=== PATIENT | female | born 1985 | race Caucasian/White ===

== ENCOUNTER 2016-12-31 08:35 | Outpatient (CLI) | payer OTHER ==
[~2016-12-31] VITALS: Ht 170.2 cm; Wt 82.7 kg
[~2016-12-31 08:35] MED LIST: IRON1TAB2 PO; PREN1TAB79 PO
[2016-12-31 08:44] VITALS: BP 136/71
== END 2016-12-31 09:47 | disposition home or self-care (01) ==
LOC: LDOP 08:35
PROVIDERS: ATTEND Student in an Organized Health Care Education/Training Program
DX: O99.013 Anemia complicating pregnancy, third trimester (principal); O48.0 Post-term pregnancy; Z3A.40 40 weeks gestation of pregnancy
CPT/HCPCS: 59025; 99201; G0463

== ENCOUNTER 2017-01-05 10:07 | Inpatient (IN) | payer OTHER ==
[2017-01-05] VITALS (8 sets, daily range): BP systolic 108–135; BP diastolic 58–73
[~2017-01-05] VITALS: Ht 170.2 cm; Wt 83.0 kg
[2017-01-05] MEDS ORDERED: D5%-LACTATED RINGERS 1,000 ML IV SCH (10:39)
[2017-01-05] MEDS ORDERED: LACTATED RINGERS 1,000 ML IV SCH (10:39)
[2017-01-05] MEDS ORDERED: OXYTOCIN 30U/ 0.9% NaCL 500ML 500 ML IV ONE (10:39)
[2017-01-05] MEDS ORDERED: NEWBORN KIT ONE (10:54)
[2017-01-05] MEDS ORDERED: FENTANYL PF 100 MCG/2ML IVPush PRN (11:00)
[2017-01-05] MEDS ORDERED: ONDANSETRON 2MG/ML, 2ML IVPush PRN ×2 (11:00→14:00)
[2017-01-05] MEDS ORDERED: TERBUTALINE 1 MG/ML, 1ML SQ PRN (11:00)
[2017-01-05] MEDS ORDERED: FENTANYL PF 100 MCG/2ML IV PRN ×2 (11:00→14:00)
[2017-01-05] MEDS ORDERED: OXYTOCIN 30U/ 0.9% NaCL 500ML 500 ML ONE ×3 (11:07→13:51)
[2017-01-05] MEDS ORDERED: MISOPROSTOL 200 MCG TABLET ONE (11:07)
[2017-01-05] MEDS ORDERED: LIDOCAINE 1%, 20ML ONE ×3 (11:07→13:46)
[2017-01-05 11:21] LABS: HEMATOCRIT 26.6 % (34.6-47.8); WHITE BLOOD COUNT 12.6 x10^3/uL (3.4-10)
[2017-01-05 11:39] LABS: DIFF TOTAL CELLS COUNTED 100 CELL DIFF
[2017-01-05 11:40] LABS: ANISOCYTOSIS 2+; MICROCYTOSIS 2+; VERIFY COUNTS? YES
[2017-01-05 11:41] LABS: OVALOCYTES 1+; POIKILOCYTOSIS 1+
[2017-01-05 11:42] LABS: HYPOCHROMIA 2+; POLYCHROMASIA 1+
[2017-01-05] MEDS ORDERED: FENTANYL PF 100 MCG/2ML ONE ×2 (12:12→13:06)
[2017-01-05] MEDS ORDERED: HYDROcodone/APAP 5/325 TABLET PO PRN (13:00)
[2017-01-05] MEDS ORDERED: HETASTARCH 0.9 % 500 ML IV SCH (13:00)
[2017-01-05] MEDS ORDERED: ONDANSETRON 2MG/ML, 2ML IV PRN (13:00)
[2017-01-05] MEDS ORDERED: MISOPROSTOL 200 MCG TABLET PR ONE (13:00)
[2017-01-05] MEDS ORDERED: METHYLERGONOVINE 0.2 MG/ML IM PRN (13:00)
[2017-01-05] MEDS ORDERED: DOCUSATE 100 MG CAPSULE PO PRN (13:00)
[2017-01-05] MEDS ORDERED: ACETAMINOPHEN 325 MG TABLET PO PRN (13:00)
[2017-01-05] MEDS ORDERED: MISOPROSTOL 200 MCG TABLET PR PRN (13:00)
[2017-01-05] MEDS ORDERED: MIDAZOLAM 1 MG/ML, 2ML ONE (13:06)
[2017-01-05] MEDS ORDERED: SODIUM CITRATE/CITRIC ACID 30 ML UDC ONE (13:13)
[2017-01-05] MEDS ORDERED: METOCLOPRAMIDE 5 MG/ML, 2ML ONE (13:15)
[2017-01-05] MEDS ORDERED: ONDANSETRON 2MG/ML, 2ML ONE (13:15)
[2017-01-05] MEDS ORDERED: PROPOFOL 10 MG/ML, 20ML ONE (13:15)
[2017-01-05] MEDS ORDERED: SUCCINYLCHOLINE 20 MG/ML, 10ML ONE (13:15)
[2017-01-05] MEDS ORDERED: CEFAZOLIN 1,000 MG ONE (13:15)
[2017-01-05] MEDS ORDERED: DEXAMETHASONE 4 MG/ML, 1ML ONE (13:15)
[2017-01-05] MEDS ORDERED: KETOROLAC 30 MG/1 ML ONE (13:15)
[2017-01-05] MEDS ORDERED: METRONIDAZOLE PMX 500MG/100ML 100 ML IV ONE (13:30)
[2017-01-05 13:40] LABS: HEMATOCRIT 24.8 % (34.6-47.8); HEMOGLOBIN 7.4 g/dL (11.7-16.4); WHITE BLOOD COUNT 18.4 x10^3/uL (3.4-10)
[2017-01-05] MEDS ORDERED: HYDROmorphone 1 MG/ML, 1ML IV PRN (14:00)
[2017-01-05] MEDS ORDERED: OXYcodone 5 MG/5 ML ORAL.SOL UDC PO PRN (14:00)
[2017-01-05] MEDS ORDERED: MEPERIDINE/PF 25MG/0.5ML IVPush PRN (14:00)
[2017-01-05] MEDS ORDERED: ALBUTEROL SULFATE 2.5 MG/3 ML NPPB PRN (14:00)
[2017-01-05] MEDS ORDERED: HYDROcodone/APAP 7.5-325MG/15ML UDC PO PRN (14:00)
[2017-01-05] MEDS ORDERED: METOCLOPRAMIDE 5 MG/ML, 2ML IV PRN (14:00)
[2017-01-05] MEDS ORDERED: EPHEDRINE 50 MG/ML, 1ML IVPush PRN (14:00)
[2017-01-05] MEDS ORDERED: PROMETHAZINE 25 MG/ML, 1ML IV PRN (14:00)
[2017-01-05] MEDS ORDERED: MIDAZOLAM 1 MG/ML, 2ML IV PRN (14:00)
[2017-01-05 14:52] LABS: DIFF TOTAL CELLS COUNTED 100 CELL DIFF
[2017-01-05 14:54] LABS: ANISOCYTOSIS 2+; HYPOCHROMIA 2+; MICROCYTOSIS 2+; OVALOCYTES 1+; POIKILOCYTOSIS 1+; POLYCHROMASIA 1+
[2017-01-05 14:56] LABS: VERIFY COUNTS? YES
[2017-01-05] MEDS: OXYTOCIN 30U/ 0.9% NaCL 500ML 500 ML IV SCH ×2 (15:15→22:45)
[2017-01-05] MEDS: FERROUS GLUCONATE 324 MG TABLET PO SCH (17:35)
[2017-01-05 19:40] LABS: WHITE BLOOD COUNT 14.2 x10^3/uL (3.4-10)
[2017-01-05 19:43] LABS: HEMATOCRIT 20.7 % (34.6-47.8); HEMOGLOBIN 6.2 g/dL (11.7-16.4)
[2017-01-05 19:45] LABS: DIFF TOTAL CELLS COUNTED 100 CELL DIFF
[2017-01-05 19:57] LABS: ANISOCYTOSIS 2+; HYPOCHROMIA 2+; MICROCYTOSIS 2+; POIKILOCYTOSIS 1+; POLYCHROMASIA 1+; VERIFY COUNTS? YES
[2017-01-05 19:58] LABS: OVALOCYTES 1+
[2017-01-06] MEDS: HYDROcodone/APAP 5/325 TABLET PO PRN ×5 (00:24→20:09)
[2017-01-06] MEDS: DOCUSATE 100 MG CAPSULE PO SCH ×3 (00:24→20:09)
[2017-01-06 01:00] VITALS: BP 110/61
[2017-01-06 03:30] VITALS: BP 116/64
[2017-01-06 06:03] LABS: HEMATOCRIT 24.5 % (34.6-47.8); HEMOGLOBIN 7.6 g/dL (11.7-16.4); WHITE BLOOD COUNT 15.3 x10^3/uL (3.4-10)
[2017-01-06 06:37] LABS: ANISOCYTOSIS 1+
[2017-01-06 06:40] LABS: MICROCYTOSIS 1+; OVALOCYTES 1+; POIKILOCYTOSIS 1+; SCHISTOCYTES 1+
[2017-01-06 07:45] VITALS: BP 109/68
[2017-01-06] MEDS: PRENATAL VIT/IRON/FA 1 EACH TABLET PO SCH (08:10)
[2017-01-06] MEDS: FERROUS GLUCONATE 324 MG TABLET PO SCH (08:10)
[2017-01-06] MEDS: IBUPROFEN 600 MG TABLET PO PRN ×2 (08:12→15:03)
[2017-01-06] MEDS: OXYTOCIN 30U/ 0.9% NaCL 500ML 500 ML IV SCH ×2 (08:45→18:45)
[2017-01-06 12:45] VITALS: BP 114/74
[2017-01-06 20:00] VITALS: BP 110/67
[2017-01-07] MEDS: IBUPROFEN 600 MG TABLET PO PRN ×2 (00:17→06:26)
[2017-01-07] MEDS: HYDROcodone/APAP 5/325 TABLET PO PRN ×3 (00:18→10:16)
[2017-01-07 05:47] LABS: HEMATOCRIT 30.9 % (34.6-47.8); HEMOGLOBIN 9.4 g/dL (11.7-16.4); WHITE BLOOD COUNT 10.4 x10^3/uL (3.4-10)
[2017-01-07 06:50] LABS: ANISOCYTOSIS 2+; HYPOCHROMIA 1+; MICROCYTOSIS 2+; OVALOCYTES 1+; POIKILOCYTOSIS 1+
[2017-01-07 07:35] VITALS: BP 114/67
[2017-01-07] MEDS ORDERED: ASCORBIC ACID 500 MG TABLET PO SCH (09:00)
[2017-01-07] MEDS ORDERED: FERROUS GLUCONATE 324 MG TABLET PO SCH (09:00)
[2017-01-07] MEDS: PRENATAL VIT/IRON/FA 1 EACH TABLET PO SCH (10:16)
[2017-01-07] MEDS: DOCUSATE 100 MG CAPSULE PO SCH (10:16)
[2017-01-07] MEDS ORDERED: HYDR-3240 PO (10:31)
[2017-01-07] MEDS ORDERED: IBUP-1222 PO (10:34)
[2017-01-07] MEDS ORDERED: SENN-99 PO (10:43)
[2017-01-07] MEDS ORDERED: DOCU100C33 PO (10:47)
== END 2017-01-07 13:52 | disposition home or self-care (01) | DRG 775 ==
LOC: LDOP 10:07 → LDIP 10:40 → 2NW 15:46
PROVIDERS: ADMIT Student in an Organized Health Care Education/Training Program; ATTEND Student in an Organized Health Care Education/Training Program
PROC: 0DQP0ZZ Repair Rectum, Open Approach (ICD-10-PCS; principal; 2017-01-05)
PROC: 10E0XZZ Delivery of Products of Conception, External Approach (ICD-10-PCS; 2017-01-05)
PROC: 30233N1 Transfusion of Nonautologous Red Blood Cells into Peripheral Vein, Percutaneous Approach (ICD-10-PCS; 2017-01-05)
PROC: 0W8NXZZ Division of Female Perineum, External Approach (ICD-10-PCS; 2017-01-05)
DX: O62.3 Precipitate labor (principal); O70.3 Fourth degree perineal laceration during delivery; O99.02 Anemia complicating childbirth; D50.9 Iron deficiency anemia, unspecified; Z3A.41 41 weeks gestation of pregnancy; Z37.0 Single live birth; Z88.2 Allergy status to sulfonamides; Z83.3 Family history of diabetes mellitus
CPT/HCPCS: 36415; 85025; 86850; 86900; 86923; J0690; J1100; J1885; J2250; J2405; J2704; J3010; J0330; J2590; J2765; J7120; P9016